=== PATIENT | male | born 2000 | race Caucasian/White ===

== ENCOUNTER → 2021-10-16 10:35 | Outpatient (CLI) | payer BC, SELFPAY ==
[2021-10-16 22:40] LABS: SARS-CoV-2 RNA PCR Negative
== END ==
PROVIDERS: PCP Internal Medicine; Visit Provider Internal Medicine
DX: Z20.822 Contact with and (suspected) exposure to COVID-19 (principal)
CPT/HCPCS: C9803; U0003; U0005

== ENCOUNTER → 2022-04-23 00:10 | Outpatient (CLI) | payer BC, SELFPAY ==
[2022-04-23 11:35] LABS: SARS-CoV-2 RNA PCR Positive
== END ==
PROVIDERS: PCP Nurse Practitioner Family; Visit Provider Nurse Practitioner Family
DX: U07.1 COVID-19 (principal)
CPT/HCPCS: C9803; U0003; U0005

== ENCOUNTER 2024-11-22 16:54 | Emergency (ER) | payer OTHER, BC, SELFPAY ==
[2024-11-22 17:05] VITALS: BP 125/71; PULSE 63; RESP 18; TEMP 36.4; O2SAT 100
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
== END 2024-11-22 17:38 | disposition home or self-care (01) ==
PROVIDERS: Emergency Provider Nurse Practitioner Family; PCP Internal Medicine
DX: S16.1XXA Strain of muscle, fascia and tendon at neck level, initial encounter (principal); V89.2XXA Person injured in unspecified motor-vehicle accident, traffic, initial encounter
CPT/HCPCS: 99203; G0463